=== PATIENT | female | born 1970 | race Caucasian/White ===

== ENCOUNTER 2024-04-21 09:50 | Inpatient (IN) | payer MEDICAID ==
[~2024-04-21] VITALS: Ht 157.5 cm; Wt 69.4 kg
[2024-04-21 09:51] VITALS: BP 150/59; PULSE 89; RESP 18; TEMP 97.8; O2SAT 100
[2024-04-21 10:26] VITALS: O2SAT 98
[2024-04-21] MEDS: NACL 0.9% 1,000 ML IV ONE (10:37)
[2024-04-21 10:39] LABS: HEMATOCRIT 23.4 % (36-48); MEAN CORPUSCULAR HEMOGLOBIN 15 pg (27-31); MEAN CORPUSCULAR HGB CONC 28 g/dL (33-37); PLATELET COUNT (AUTO) 115 K/uL (140-450); RED CELL DISTRIBUTION WIDTH 22.3 % (11.6-13.7); WHITE BLOOD COUNT (AUTO) 5.3 K/uL (4.8-10.8)
[2024-04-21 10:56] LABS: HEMOGLOBIN 6.5 g/dL (12.0-16.0)
[2024-04-21 10:57] LABS: BILIRUBIN,URINE NEGATIVE (NEGATIVE); BLOOD, URINE NEGATIVE (NEGATIVE); COLOR,URINE YELLOW (YELLOW); LEUKOCYTE ESTERASE ,URINE NEGATIVE (NEGATIVE); NITRITE, URINE NEGATIVE (NEGATIVE); PROTEIN,URINE NEGATIVE (NEGATIVE); UGLUCOSE 3+ (NEGATIVE); UROBILINOGEN,URINE 0.2 EU/dL (0.2 - 1)
[2024-04-21 11:03] LABS: BACTERIA,URINE FEW /HPF (None Seen); RBC,URINE 0-5 /HPF (0-5); WBC,URINE 0-5 /HPF (0-5)
[2024-04-21 11:06] LABS: APPEARANCE,URINE SLIGHTLY HAZY (CLEAR)
[2024-04-21 11:11] LABS: ANION GAP 13.6 (8-16); CALCIUM 8.5 mg/dL (8.5-10.1); CARBON DIOXIDE 25.1 mmol/L (21-32); CREATININE 0.6 mg/dL (0.6-1.3); POTASSIUM 3.7 mmol/L (3.5-5.1)
[2024-04-21 11:36] LABS: BASOPHILS % (MANUAL) 0 % (0-2); BLASTS, MANUAL % 0 % (0-0); EOSINOPHILS % (MANUAL) 2 % (0-4); LYMPHOCYTES % (MANUAL) 19 % (20-46); METAMYELOCYTES % 0 % (0-0); MONOCYTES % (MANUAL) 2 % (5-12); MYELOCYTES % 0 % (0-0); OTHER CELLS,MANUAL % 0 (0-0); PLASMA CELLS 0; PROMYELOCYTES % 0 % (0-0); SMUDGE CELLS 0
[2024-04-21 11:37] LABS: ANISOCYTOSIS 3+; OVALOCYTES 2+; PLATELET ESTIMATE SLIGHTLY DECREASED; ROULEAU 1+; SCHISTOCYTES 1+; TARGET CELLS 1+; TEAR DROP CELLS 1+
[2024-04-21] MEDS: ASPIRIN 81 MG TAB.CHEW PO ONE (11:55)
[2024-04-21 12:22] VITALS: O2SAT 98
[2024-04-21] MEDS ORDERED: LORazepam 2 MG/ML VIAL IVP PRN (13:20)
[2024-04-21] MEDS ORDERED: ONDANSETRON 4 MG/2 ML VIAL IVP PRN (13:20)
[2024-04-21] MEDS ORDERED: HYDROcodone/APAP 5/325 MG 1 TAB TAB PO PRN (13:20)
[2024-04-21] MEDS ORDERED: ACETAMINOPHEN 325 MG TAB PO PRN (13:20)
[2024-04-21] MEDS ORDERED: DEXTROSE 50% 50 ML SYR IVP PRN (13:20)
[2024-04-21] MEDS ORDERED: GABA300C PO (13:45)
[2024-04-21] MEDS ORDERED: INSU100I7 SQ (13:45)
[2024-04-21] MEDS ORDERED: DULA0.75 SC (13:45)
[2024-04-21] MEDS ORDERED: METF-1139 PO (13:45)
[2024-04-21] MEDS: NACL 0.9% 1,000 ML IV SCH (14:10)
[2024-04-21 16:00] VITALS: BP 147/85; PULSE 69; RESP 19; TEMP 98.1; O2SAT 100
[2024-04-21] MEDS: SODIUM FERRIC GLUCONATE 125 MG in NACL 0.9% 100 ML IV SCH (16:35)
[2024-04-21] MEDS: BLOOD GLUCOSE MONITORING 1 DEV DEV FS SCH (17:03)
[2024-04-21] MEDS: INSULIN LISPRO SLIDING SCALE 100 UNITS/ML VIAL SUBQ PRN (17:15)
[2024-04-21 20:00] VITALS: BP 147/85; PULSE 69; PULSE 87; RESP 18; TEMP 98.1; O2SAT 97; O2SAT 98
[2024-04-22] VITALS: BP 142/76; PULSE 72; RESP 18; TEMP 97.6; O2SAT 96
[2024-04-22 04:00] VITALS: BP 108/48; PULSE 77; RESP 18; TEMP 98.8; O2SAT 97
[2024-04-22 06:36] LABS: BASOPHILS % (AUTO) 0.6 % (0.0-2.0); EOSINOPHILS # (AUTO) 0.2 K/uL (0-0.4); EOSINOPHILS % (AUTO) 2.2 % (0.0-4.0); HEMATOCRIT 21.9 % (36-48); LYMPHOCYTES # (AUTO) 2.3 K/uL (2.5-16.5); LYMPHOCYTES % (AUTO) 33.8 % (20.5-51.1); MEAN CORPUSCULAR HEMOGLOBIN 14 pg (27-31); MEAN CORPUSCULAR HGB CONC 28 g/dL (33-37); MEAN CORPUSCULAR VOLUME 52.3 fL (80-94); MONOCYTES # (AUTO) 0.3 K/uL (0.8-1.0); MONOCYTES % (AUTO) 4.8 % (1.7-9.3); NEUTROPHILS % (AUTO) 58.6 % (42.2-75.2); PLATELET COUNT (AUTO) 128 K/uL (140-450); RED BLOOD CELL COUNT(AUTO) 4.19 MIL/uL (4.20-5.40); RED CELL DISTRIBUTION WIDTH 22.2 % (11.6-13.7); WHITE BLOOD COUNT (AUTO) 6.8 K/uL (4.8-10.8)
[2024-04-22 06:54] LABS: ANION GAP 11.6 (8-16); CALCIUM 8.1 mg/dL (8.5-10.1); CARBON DIOXIDE 25.4 mmol/L (21-32); CREATININE 0.6 mg/dL (0.6-1.3)
[2024-04-22 08:00] VITALS: BP 107/62; PULSE 73; RESP 17; TEMP 98.8; O2SAT 97
[2024-04-22] MEDS: diphenhydrAMINE 50 MG/ML VIAL IVP PRN (09:27)
[2024-04-22 15:07] LABS: FOLIC ACID 17.1 ng/mL (>3.0)
[2024-04-22 16:40] VITALS: BP 112/62; PULSE 79; RESP 17; TEMP 98.2; O2SAT 97
[2024-04-22 20:00] VITALS: BP 108/46; PULSE 71; PULSE 73; RESP 17; TEMP 97.8; O2SAT 97
[2024-04-22 21:12] LABS: HEMATOCRIT 30.2 % (36-48)
[2024-04-23 04:00] VITALS: BP 116/48; PULSE 84; RESP 18; TEMP 97.6; O2SAT 95
[2024-04-23 06:55] LABS: BASOPHILS # (AUTO) 0.1 K/uL (0.00-0.22); BASOPHILS % (AUTO) 0.7 % (0.0-2.0); EOSINOPHILS # (AUTO) 0.2 K/uL (0-0.4); EOSINOPHILS % (AUTO) 2.4 % (0.0-4.0); HEMATOCRIT 28.7 % (36-48); HEMOGLOBIN 8.6 g/dL (12.0-16.0); LYMPHOCYTES # (AUTO) 0.9 K/uL (2.5-16.5); LYMPHOCYTES % (AUTO) 11.3 % (20.5-51.1); MEAN CORPUSCULAR HEMOGLOBIN 18 pg (27-31); MEAN CORPUSCULAR HGB CONC 30 g/dL (33-37); MEAN CORPUSCULAR VOLUME 58.7 fL (80-94); MONOCYTES # (AUTO) 0.4 K/uL (0.8-1.0); MONOCYTES % (AUTO) 4.7 % (1.7-9.3); NEUTROPHILS # (AUTO) 6.5 K/uL (1.8-7.7); NEUTROPHILS % (AUTO) 80.9 % (42.2-75.2); PLATELET COUNT (AUTO) 111 K/uL (140-450); RED BLOOD CELL COUNT(AUTO) 4.89 MIL/uL (4.20-5.40); RED CELL DISTRIBUTION WIDTH 32.8 % (11.6-13.7)
[2024-04-23 06:59] LABS: ANION GAP 11.7 (8-16); CALCIUM 8.1 mg/dL (8.5-10.1); CREATININE 0.5 mg/dL (0.6-1.3); POTASSIUM 3.7 mmol/L (3.5-5.1)
[2024-04-23 08:00] VITALS: BP 112/59; PULSE 83; RESP 18; TEMP 97.6; O2SAT 99
[2024-04-23] MEDS ORDERED: FERR325E14 PO (10:19)
== END 2024-04-23 12:25 | disposition home or self-care (01) | DRG 663 ==
LOC: MED 09:50 → MTU 13:13
PROVIDERS: ADMIT Student in an Organized Health Care Education/Training Program; ATTEND Student in an Organized Health Care Education/Training Program
PROC: 30233N1 Transfusion of Nonautologous Red Blood Cells into Peripheral Vein, Percutaneous Approach (ICD-10-PCS; principal; 2024-04-22)
DX: D50.8 Other iron deficiency anemias (principal); I24.89 Other forms of acute ischemic heart disease; Z90.49 Acquired absence of other specified parts of digestive tract; Z98.891 History of uterine scar from previous surgery; E11.65 Type 2 diabetes mellitus with hyperglycemia
CPT/HCPCS: 36415; 36430; 80048; 81001; 82607; 82728; 82746; 82948; 84443; 84484; 85018; 85025; 86870; 86886; 86900; 86901; 86920; 87081; 93005; 96360; 99285; J1200; J1815; J2916; P9016